=== PATIENT | female | born 1995 | race Caucasian/White ===

== ENCOUNTER 2023-11-21 10:04 | Inpatient (IN) ==
[2023-11-21] MEDS ORDERED: IOPAMIDOL 100 ML BOTTLE IV ONE (10:05)
[2023-11-21] MEDS: KETOROLAC 15 MG/ML VIAL IV ONE (10:43)
[2023-11-21] MEDS: 0.9 % SODIUM CHLORIDE 1,000 ML IV ONE (10:43)
[2023-11-21 10:53] LABS: Basophils # (Auto) 0.03 K/mcL (0.00-0.30); Basophils % (Auto) 0.4 % (0.0-2.0); Eosinophils % (Auto) 1.3 % (0.0-7.0); Hematocrit 38.1 % (34.1-44.9); Hemoglobin 12.8 g/dL (11.2-15.7); Lymphocytes # (Auto) 2.29 K/mcL (1.50-4.80); Lymphocytes % (Auto) 29.7 % (15.5-49.0); Mean Cell Volume 90.5 fL (80.0-100.0); Mean Corpuscular HGB Conc 33.6 g/dL (31.0-36.0); Mean Platelet Volume 8.8 fL (8.8-12.5); Monocytes # (Auto) 0.59 K/mcL (0.10-0.90); Monocytes % (Auto) 7.7 % (1.0-12.0); Neutrophils % (Auto) 60.8 % (38.0-78.0); Platelet Count 280 K/mcL (140-440); RBC 4.21 M/mcL (3.59-5.38); Red Cell Distribution Width 11.5 % (11.5-14.5); WBC 7.7 K/mcL (4.5-11.0)
[2023-11-21 11:06] LABS: ALT/SGPT 16 U/L (<40); AST/SGOT 21 U/L (<32); Albumin 4.6 gm/dL (3.2-5.2); Albumin/Globulin Ratio 1.6 (1.0-2.3); Alkaline Phosphatase 64 U/L (39-117); Bilirubin,Total 0.4 mg/dL (0.1-1.0); Blood Urea Nitrogen 15 mg/dL (6-20); Calcium 9.2 mg/dL (8.6-10.4); Carbon Dioxide 24 mmol/L (22-30); Chloride 101 mmol/L (96-108); Globulin 2.9 gm/dL (2.2-3.7); Glomerular Filtration Rate 131; Glucose 95 mg/dL (70-105)
[2023-11-21] MEDS: PIPERACILLIN SODIUM/TAZOBACTAM 3.375 GM in DEXTROSE 5% IN WATER 50 ML IV ONE (13:49)
[2023-11-21] MEDS ORDERED: PIPERACILLIN SODIUM/TAZOBACTAM 3.375 GM in 0.9 % SODIUM CHLORIDE 100 ML IV SCH (14:00)
[2023-11-21] MEDS: KETOROLAC 30 MG/ML VIAL IV ONE (14:10)
[2023-11-21] MEDS: DEXTROSE 5%-1/2NS W/10MEQ KCL 1,000 ML IV SCH (14:52)
[2023-11-21] MEDS: ACETAMINOPHEN 650 MG/65 ML BAG IV PRN (16:21)
[2023-11-21] MEDS: ONDANSETRON 4 MG/2 ML VIAL IV PRN (18:40)
[2023-11-21] MEDS: PIPERACILLIN SODIUM/TAZOBACTAM 3.375 GM in DEXTROSE 5% IN WATER 100 ML IV SCH (19:46)
[2023-11-21] MEDS: KETOROLAC 30 MG/ML VIAL IV PRN (21:00)
[2023-11-22 06:24] LABS: Basophils # (Auto) 0.03 K/mcL (0.00-0.30); Basophils % (Auto) 0.6 % (0.0-2.0); Eosinophils # (Auto) 0.13 K/mcL (0.00-0.70); Eosinophils % (Auto) 2.5 % (0.0-7.0); Hematocrit 33.6 % (34.1-44.9); Hemoglobin 11.5 g/dL (11.2-15.7); Lymphocytes # (Auto) 2.01 K/mcL (1.50-4.80); Lymphocytes % (Auto) 38.4 % (15.5-49.0); Mean Cell Volume 92.6 fL (80.0-100.0); Mean Corpuscular HGB Conc 34.2 g/dL (31.0-36.0); Monocytes # (Auto) 0.43 K/mcL (0.10-0.90); Monocytes % (Auto) 8.2 % (1.0-12.0); Neutrophils % (Auto) 49.9 % (38.0-78.0); Platelet Count 247 K/mcL (140-440); RBC 3.63 M/mcL (3.59-5.38); Red Cell Distribution Width 11.6 % (11.5-14.5); WBC 5.2 K/mcL (4.5-11.0)
[2023-11-22 06:31] LABS: C-Reactive Protein 1.86 mg/dL (0.03-0.80)
[2023-11-22 06:43] LABS: Blood Urea Nitrogen 8 mg/dL (6-20); Calcium 8.8 mg/dL (8.6-10.4); Carbon Dioxide 24 mmol/L (22-30); Chloride 106 mmol/L (96-108); Glomerular Filtration Rate 131; Glucose 94 mg/dL (70-105)
[2023-11-22] MEDS ORDERED: GLYCOPYRROLATE 0.2 MG/ML VIAL IV ONE (12:25)
[2023-11-22] MEDS ORDERED: DEXAMETHASONE 10 MG/ML VIAL ONE (12:25)
[2023-11-22] MEDS ORDERED: KETAMINE 50 MG/ML Syringe IV ONE (12:25)
[2023-11-22] MEDS ORDERED: ONDANSETRON 4 MG/2 ML VIAL ONE (12:25)
[2023-11-22] MEDS ORDERED: PROPOFOL 200 MG/20 ML VIAL IV ONE (12:25)
[2023-11-22] MEDS ORDERED: LIDOCAINE 2% PF 5 ML VIAL ONE (12:25)
[2023-11-22] MEDS ORDERED: SUGAMMADEX SODIUM 200 MG/2 ML VIAL IV ONE (12:28)
[2023-11-22] MEDS ORDERED: MIDAZOLAM 2 MG/2 ML VIAL ONE (12:29)
[2023-11-22] MEDS ORDERED: ROCURONIUM 10 MG/ML ML IV ONE (12:30)
[2023-11-22] MEDS ORDERED: HYDROmorphone 1 MG/ML SYRINGE ONE (12:35)
[2023-11-22] MEDS ORDERED: PHENYLephrine 1 MG/10 ML SYRINGE (ANEST) ONE (12:59)
[2023-11-22] MEDS: BUPIVACAINE W/EPI 0.5% 50 ML VIAL IJ ONE (13:05)
[2023-11-22] MEDS ORDERED: TRANEXAMIC ACID 1,000 MG/10 ML VIAL ONE (13:23)
[2023-11-22] MEDS ORDERED: ONDANSETRON 4 MG/2 ML VIAL IV PRN (14:01)
[2023-11-22] MEDS ORDERED: IPRATROPIUM/ALBUTEROL 3 ML AMPUL.NEB NEB PRN (14:01)
[2023-11-22] MEDS ORDERED: BENZOCAINE/MENTHOL 1 LOZENGE PO PRN (14:01)
[2023-11-22] MEDS ORDERED: ALBUTEROL SULFATE 60 PUFF INHALER ONE (14:20)
[2023-11-22] MEDS: fentaNYL 100 MCG/2 ML VIAL IV PRN (14:40)
[2023-11-22] MEDS: HYDROmorphone 0.5 MG/0.5 ML SYRINGE IV PRN (14:55)
[2023-11-22] MEDS: HYDROmorphone 0.5 MG/0.5 ML SYRINGE IV ONE (16:03)
[2023-11-22] MEDS: LACTATED RINGERS 1,000 ML IV SCH (16:31)
[2023-11-22] MEDS: PROMETHAZINE 25 MG/ML VIAL IV PRN (20:16)
[2023-11-22] MEDS: ESCITALOPRAM 20 MG TABLET PO SCH (20:35)
[2023-11-22] MEDS: clonazePAM 0.5 MG TABLET PO PRN (20:35)
[2023-11-23] MEDS: oxyCODONE IR 5 MG TABLET PO PRN (04:33)
[2023-11-23 07:23] LABS: Blood Urea Nitrogen 5 mg/dL (6-20); Calcium 8.5 mg/dL (8.6-10.4); Carbon Dioxide 23 mmol/L (22-30); Chloride 104 mmol/L (96-108); Glomerular Filtration Rate 141; Glucose 97 mg/dL (70-105)
[2023-11-23 07:39] LABS: Hematocrit 34.2 % (34.1-44.9); Hemoglobin 11.4 g/dL (11.2-15.7); Mean Cell Volume 89.5 fL (80.0-100.0); Mean Corpuscular HGB Conc 33.3 g/dL (31.0-36.0); Mean Platelet Volume 9.2 fL (8.8-12.5); Platelet Count 282 K/mcL (140-440); RBC 3.82 M/mcL (3.59-5.38); Red Cell Distribution Width 11.5 % (11.5-14.5); WBC 8.8 K/mcL (4.5-11.0)
[2023-11-23] MEDS ORDERED: ONDANSETRON 4 MG/2 ML VIAL IV PRN (17:42)
[2023-11-23] MEDS: morphine 2 MG/ML VIAL IV PRN (17:51)
[2023-11-23] MEDS: 0.9 % SODIUM CHLORIDE 10 ML SYRINGE IV SCH (20:15)
[2023-11-23] MEDS: DOCUSATE SODIUM 100 MG CAPSULE PO SCH (21:11)
[2023-11-23] MEDS: SENNOSIDES 1 TABLET PO SCH (21:11)
[2023-11-24 07:41] LABS: Blood Urea Nitrogen 10 mg/dL (6-20); Calcium 8.1 mg/dL (8.6-10.4); Carbon Dioxide 27 mmol/L (22-30); Chloride 105 mmol/L (96-108); Glomerular Filtration Rate 131; Glucose 99 mg/dL (70-105)
[2023-11-24 07:52] LABS: Hematocrit 30.7 % (34.1-44.9); Hemoglobin 10.2 g/dL (11.2-15.7); Mean Cell Volume 93.3 fL (80.0-100.0); Mean Corpuscular HGB Conc 33.2 g/dL (31.0-36.0); Mean Platelet Volume 9.6 fL (8.8-12.5); Platelet Count 209 K/mcL (140-440); RBC 3.29 M/mcL (3.59-5.38); Red Cell Distribution Width 11.8 % (11.5-14.5); WBC 5.4 K/mcL (4.5-11.0)
== END 2023-11-24 11:51 | disposition home or self-care (01) | DRG 399 ==
LOC: MEDSUR 10:04 → ED 10:04 → MEDSUR 14:27
PROVIDERS: ADMIT Surgery Surgical Critical Care; ATTEND Surgery Surgical Critical Care
PROC: LAPAPPY (ICD-10-PCS; 2023-11-22 12:44)